=== PATIENT | male | born 1940 | race Caucasian/White ===

== ENCOUNTER → 2019-10-31 11:48 | Outpatient (CLI) | payer MEDICARE, SELFPAY | PROVIDERS: PCP Nurse Practitioner Family; Visit Provider Internal Medicine | DX: E11.9 Type 2 diabetes mellitus without complications (principal); E78.2 Mixed hyperlipidemia; I11.9 Hypertensive heart disease without heart failure; I25.10 Atherosclerotic heart disease of native coronary artery without angina pectoris; I65.23 Occlusion and stenosis of bilateral carotid arteries; N18.4 Chronic kidney disease, stage 4 (severe); R06.09 Other forms of dyspnea; R07.89 Other chest pain; R60.0 Localized edema; Z79.4 Long term (current) use of insulin | CPT/HCPCS: 93306 ==

== ENCOUNTER → 2020-10-09 12:47 | Outpatient (CLI) | payer MEDICARE, SELFPAY | PROVIDERS: PCP Nurse Practitioner Family; Visit Provider Internal Medicine | DX: R06.00 Dyspnea, unspecified (principal); R07.89 Other chest pain | CPT/HCPCS: 93225; 93226 ==

== ENCOUNTER → 2020-10-18 06:25 | Outpatient (CLI) | payer MEDICARE, SELFPAY ==
--- NOTE | 2020-10-18 06:27 | CA_ITS ---
APPROVED REPORT EXAM: Comprehensive 2D, Doppler, and color-flow Echocardiogram Professional Benefits Sales Consultant: Sona Jimenez, RCS, RVS Ht: 5 ft 4 in Wt: 183lbs BSA: 1.88 BP: 158/80 mmHg Indications: CAD-multiple stentds, MORSE, Atypical CP,DD,CP 2D Dimensions IVSd 0.95 cm LVEF (Visual) 46.00 % PWd 0.94 cm LVEF (Kauffman's) 65.10 % LVDd 4.75 cm LV Volume 95.80 mL LVDs 3.66 cm LA Volume 70.60 mL Aortic Root 3.60 cm LA Volume Index 37.60 mL/m2 (M/F) 16-34 Left Atrium 4.49 cm LVOT 2.26 cm (M/F) 1.5-2.5 M-Mode Dimensions LA Diam 4.20 cm (1.9-4.0) Ao Diam 3.72 cm (2.0-3.7) TAPSE 2.39 (<1.7) LV Diastology E Decel Time 403.00 (160-240 msec) E/A Ratio 0.64 MED E' 6.30 (< 7 cm/sec) MED A' 9.40 cm/s E'/MED E' Ratio 9.13 (>14) LAT E' 6.20 (<10 cm/sec) LAT A' 16.10 cm/s E/LAT E' Ratio 9.27 (>14) Pulm Vein s 40.00 cm/sec Pulm Vein d 27.00 cm/sec Ar-A Duration 73.00 msec Aortic Valve LVOT Max 102.00 (70-110 cm/s) LVOT VTI 24.57 cm AoV Peak James. 140.00 (50-130 cm/s) AI PHT 378.00 ms AO Peak GR. 7.90 mmHg AO Mean GR. 3.80 (<5 mmHg) AO VTI 28.95 (18-25 cm) JOHN (VTI) 3.40 (2.5-4.5 cm2) Mitral Valve MV A Velocity 90.00 (40-130 cm/s) E/A Ratio 0.64 MV Decel. Time 403.00 (160-240 ms) Pulmonary Valve PV Peak Velocity 73.00 (50-150 cm/s) Tricuspid Valve TR P. Velocity 259.00 cm/s RAP Estimate 10.00 mmHg RVSP 36.80 mmHg Left Ventricle Left atrium is mildly enlarged, left ventricle is normal size, mild concentric left ventricular hypertrophy, visually estimated ejection fraction 55% with no regional wall motion abnormality, grade 1 diastolic dysfunction seen without tissue Doppler evidence of raise left atrial pressure. Right Ventricle Right atrium and right ventricle are normal size and contractility. Aortic Valve Aortic valve is minimally thickened and calcified without aortic stenosis or aortic insufficiency. Mitral Valve Mitral valve leaflets are grossly normal, there is trace mitral regurgitation. Tricuspid Valve Tricuspid grossly normal, there is trace tricuspid regurgitation, tricuspid regurgitation jet velocity is inadequate for calculation of the right ventricular systolic pressure. Pulmonic Valve Pulmonic valve is poorly visualized. Great Vessels Aortic root is normal size. Pericardium No significant pericardial effusion noted. Conclusion 1. Mildly enlarged left atrium, normal left ventricular size, mild concentric left ventricular hypertrophy, visually estimated ejection fraction 55% with no regional wall motion abnormality, grade 1 diastolic dysfunction seen without tissue Doppler evidence of raise left atrial pressure. 2. Thickened and calcified aortic valve without aortic stenosis or aortic insufficiency. 3. Trace mitral and tricuspid regurgitation. 4. No significant pericardial effusion noted. Electronically signed by : Abiodun Maza, 10/18/2020 16:02:14
--- NOTE | 2020-10-18 06:27 | CA_ITS ---
APPROVED REPORT Exam: Pharmacologic Technologist: Dilcia Doyle, Ht: 5 ft 4 in Wt: 183 lbs BSA: 1.88 m2 HR: 69 bpm BP: 138/72 mmHg Medical History Medications: Amlodipine,,,,, Aspirin,,,,, Synthroid,,,,, Allopurinol,,,,, Atorvastatin,,,,, Lasix,,,,, INSULIN,,,,, Plavix,,,,, Acetaminophen,,,,, Meclizine,,,,, Ezetimbe,,,,, SeMaglutide,,,,, Stress Test Details Test: LEXISCAN HR Resting HR: 70 bpm Max Heart Rate (APMHR): 140.394150 bpm Max HR Achieved: 84 bpm Target HR (85% APMHR): 119.449890 bpm % of APMHR: 60.00 Recovery HR: 76 bpm BP Resting BP: 138/72 mmHg Max BP: 153/66 mmHg Recovery BP: 146.0/65.0 mmHg ECG Resting ECG: NSR, T wave abns inferiorly and laterally Medications Administered Hydralazine ( mg at ) Clinical Exercise duration: 04:01 min Highest Stage Achieved: Exercise capacity: 1.0 METs Stress ECG Conclusion Symptoms: SOA, mild malaise. No CP. Arrhythmias/Ectopy: None ST-T Changes: No significant changes. Conclusion: Unremarkable Lexiscan stress. Myoview images reported separately. Electronically signed by : Abiodun Maza, 10/18/2020 10:34:51
--- NOTE | 2020-10-18 06:27 | NM_ITS ---
APPROVED REPORT Exam: Nuclear Stress Test Indication: chest pain..fatigue Patient Location: Outpatient Stress Tech: Dilcia Doyle DC Tech:KACI Pool RT(R)(N) Ht: 5 ft 8 in Wt: 185 lbs HR: 69 bpm BP: 138/72 mmHg BSA: 1.98 m2 BMI: 28.1 History: chest pain..fatigue Procedure: Patient received a 0.4 mg of intravenous Lexiscan, resting heart rate 69 bpm, resting blood pressure 138/72 mmHg, with Lexiscan maximum heart rate achived was 79 bpm which is Less than 85 % of the maximum predicted heart rate and blood pressure was 153/66 mmHg. With Lexiscan, patient denied any complaint of chest pain. Electrocardiogram Resting electrocardiogram showed sinus rhythm nonspecific ST-T changes, with Lexiscan there is less than 1.[address] segment depression noted from the baseline EKG. The EKG portion of the Lexiscan is nondiagnostic. Cardiac Stress and Resting SPECT Images: Cardiac Stress and Resting SPECT images were obtained using technetium 99m Myoview 31.2 mCi stress and 9.89 mCi at rest. Gated SPECT for analysis of segmental wall motion and calculation of the ejection fraction also done. Prone images were also obtained. Cardiac stress and resting SPECT images show a fixed defect involving the posterior basal wall consistent with area of myocardial scarring without significant amparo-infarct ischemia, computer derived ejection fraction is 54% with moderate posterior basal wall hypokinesis. Right ventricle is normal size and contractility. Conclusion: 1. The EKG portion of the Lexiscan is nondiagnostic. 2. Scintigraphic evidence of myocardial scarring involving the posterior basal wall without significant amparo-infarct ischemia, computer derived ejection fraction is 54% with moderate posterior basal wall hypokinesis, right ventricle is normal size and contractility. 3. Abnormal Lexiscan Myoview study. Electronically signed by : Abiodun Maza, 10/18/2020 10:38:26
== END ==
PROVIDERS: PCP Nurse Practitioner Family; Visit Provider Internal Medicine
DX: E78.5 Hyperlipidemia, unspecified (principal); I11.9 Hypertensive heart disease without heart failure; I25.10 Atherosclerotic heart disease of native coronary artery without angina pectoris; I65.29 Occlusion and stenosis of unspecified carotid artery; N18.4 Chronic kidney disease, stage 4 (severe); R06.00 Dyspnea, unspecified; R07.89 Other chest pain; R60.9 Edema, unspecified
CPT/HCPCS: 78452; 93017; 93306; A9502; J2785

== ENCOUNTER 2020-10-26 08:48 | Day surgery (SDC) | payer MEDICARE, SELFPAY ==
[2020-10-26] VITALS (13 sets, daily range): BP systolic 141–184; BP diastolic 67–86; PULSE 58–72; RESP 16; TEMP 36.9; O2SAT 93–100; BMI 31.6
--- NOTE | 2020-10-26 | IR_ITS ---
APPROVED REPORT Patient Location: Outpatient PROCEDURES Left heart catheterization Left ventriculogram Selective coronary angiogram INDICATION Known multivessel coronary disease, High risk abnormal Myoview Informed consent was obtained prior to the procedure. COMPLICATIONS None Estimated Blood Loss: Less than 10 mls TECHNIQUE One percent lidocaine used to anesthetize the right anterior aspect of the wrist. The right radial artery was accessed via the Seldinger technique. A 6 Georgian sheath was placed in the right radial artery. 2.5 mg of verapamil, 800 mcg of nitroglycerin, 1mg Lidocaine and 5000 U Heparin were given through the arterial sheath. The trap catheter and a 6 Georgian JL 3 guide catheter were also used to perform left heart catheterization, left ventriculogram and selective coronary angiogram. At the end of the procedure the sheath was removed good hemostasis was achieved using Traclet band, patient was transferred to the postop holding area in stable condition. ANGIOGRAPHIC RESULTS The left main artery Normal The left anterior descending artery Has proximal 10% luminal irregularities followed by a stent which is widely patent free of in-stent restenosis with excellent proximal distal transitioning. The remaining vessel has mild atheromatous plaque. A large first diagonal artery originates within the stent and has excellent TSERING-3 flow with no evidence of obstruction The circumflex artery Is a co-dominant vessel and has a smooth ostial 20% stenosis with mild diffuse 10% stenoses. The second obtuse marginal artery has a stent in the proximal segment which is widely patent free of in-stent restenosis with excellent proximal distal transitioning The right coronary artery Is a co-dominant vessel and has mid vessel smooth 40% stenosis along a tortuous bend followed by distal eccentric 20 to 30% stenosis The HUITRON ventriculogram reveals Preserved at 55 to 60% The left ventricular end-diastolic pressure 20 mmHg IMPRESSION Widely patent coronary arteries as described above Preserved ejection fraction Mildly elevated LVEDP PLAN 1. Continue risk factor modification 2. Evaluation by nephrology for renal failure Electronically signed by : Agustin Nava, 10/26/2020 14:03:30
[2020-10-26 09:37] LABS: Chloride 105 mmol/L (98-107); Potassium 4.9 mmoL/L (3.5-5.1); Sodium 137 mmol/L (136-145)
[2020-10-26 09:40] LABS: Anion Gap 12.9 mEq/L (5-15); Blood Urea Nitrogen 51 mg/dl (9-20); Calcium 9.9 mg/dl (8.4-10.2); Carbon Dioxide 24 mmol/L (22.0-30.0); Creatinine Clearance Estimated 23 mL/min (50-200); Estimated Glomerular Filt Rate 20 ml/min (>60); GFR (African American) 24 ML/MIN (>60); Glucose 155 mg/dl (74-100)
== END 2020-10-26 15:31 | disposition home or self-care (01) ==
LOC: CATHLAB 08:51
PROVIDERS: PCP Nurse Practitioner Family; Visit Provider Internal Medicine
DX: R06.02 Shortness of breath (principal); R94.39 Abnormal result of other cardiovascular function study; I25.118 Atherosclerotic heart disease of native coronary artery with other forms of angina pectoris; E11.22 Type 2 diabetes mellitus with diabetic chronic kidney disease; I13.0 Hypertensive heart and chronic kidney disease with heart failure and stage 1 through stage 4 chronic kidney disease, or unspecified chronic kidney disease; Z95.5 Presence of coronary angioplasty implant and graft; I65.23 Occlusion and stenosis of bilateral carotid arteries; I50.9 Heart failure, unspecified; Z79.899 Other long term (current) drug therapy; Z79.4 Long term (current) use of insulin; Z88.2 Allergy status to sulfonamides; E03.9 Hypothyroidism, unspecified; N18.4 Chronic kidney disease, stage 4 (severe)
CPT/HCPCS: 80048; 93458; 99152; C1725; C1769; J1644; Q9967

== ENCOUNTER → 2022-06-19 14:29 | Outpatient (CLI) | payer MEDICARE, SELFPAY | PROVIDERS: PCP Nurse Practitioner Family; Visit Provider Nurse Practitioner | DX: I48.91 Unspecified atrial fibrillation (principal) | CPT/HCPCS: 93225 ==

== ENCOUNTER → 2022-06-30 11:42 | Outpatient (CLI) | payer MEDICARE, SELFPAY ==
--- NOTE | 2022-06-30 11:53 | NM_ITS ---
APPROVED REPORT Exam: Nuclear Stress Test Indication: short of breath..fatigue..a-fib Patient Location: Outpatient Stress Tech: Dilcia Doyle ME Tech:KACI Pool RT(R)(N) Ht: 5 ft 3 in Wt: 190 lbs HR: 61 bpm BP: 176/80 mmHg BSA: 1.89 m2 TID: 0.94 BMI: 33.6 History: short of breath..fatigue..a-fib Procedure: Patient received 0.4 mg of intravenous Lexiscan, resting heart rate 61 bpm, resting blood pressure 176/80 mmHg, with Lexiscan maximum heart rate achieved was 76 bpm which is Less than 85 % of the maximum predicted heart rate and blood pressure was 176/80 mmHg. With Lexiscan, patient denied any complaint of chest pain. The patient was unable to lay on his belly for prone images. Electrocardiogram Electrocardiogram shows sinus rhythm, with Lexiscan there is less than 1.[address] segment depression noted from the baseline EKG. The EKG portion of the Lexiscan is nondiagnostic. Cardiac Stress and Resting SPECT Images: Cardiac Stress and Resting SPECT images were obtained using technetium 99m Myoview 32.3 mCi stress and 10.37 mCi at rest. Gated SPECT analysis of segmental wall motion and calculation of the ejection fraction also done. Cardiac stress and rest SPECT may show large area of reversible ischemia involving the inferior and inferior apical wall, computer derived ejection fraction is 61% with mild inferior wall hypokinesis, right ventricle is normal size and contractility. Conclusion: 1. The EKG portion of the Lexiscan is nondiagnostic. 2. Scintigraphic evidence of large reversible ischemia involving the inferior and inferior apical wall, computer derived ejection fraction is 61% with segmental wall motion abnormality described above, right ventricle is normal size and contractility. 3. Abnormal Lexiscan Myoview study. Electronically signed by : Abiodun Maza MD 06/30/2022 16:59:31
--- NOTE | 2022-06-30 13:08 | CA_ITS ---
APPROVED REPORT EXAM: Comprehensive 2D, Doppler, and color-flow Echocardiogram Delinquent Account Clerk: Sona Jimenez, RCS, RVS Ht: 5 ft 4 in Wt: 182lbs BSA: 1.88 BP: 144/70 mmHg Indications: Afib, HTN, MR, AI, PI Echo Enhancing Agent Comments: Unable to be positioned 2D Dimensions IVSd 0.79 cm M: 0.6-1.2 LVEF (Visual) 69.00 % PWd 1.20 cm M: 0.6 - 1.2 LA Volume 56.60 mL LVDd 4.80 cm M: 4.2 - 5.9 LA Volume Index 30.11 mL/m2 (M/F) 16-34 LVDs 2.94 cm M: 2.5 - 4.0 Aortic Root 3.44 cm M: 3.1 - 3.7 Left Atrium 4.24 cm M: 3.0 - 4.0 LVOT 1.97 cm (M/F) 1.5-2.5 M-Mode Dimensions LA Diam 4.48 cm (1.9-4.0) Ao Diam 3.55 cm (2.0-3.7) EPSs 0.24 cm TAPSE 2.51 (<1.7) LV Diastology E Decel Time 303.00 (160-240 msec) E/A Ratio 0.64 MED E' 6.50 (< 7 cm/sec) MED A' 11.40 cm/s E'/MED E' Ratio 7.77 (>14) LAT E' 4.90 (<10 cm/sec) LAT A' 10.90 cm/s E/LAT E' Ratio 10.31 (>14) Aortic Valve LVOT Max 103.00 (70-110 cm/s) LVOT VTI 24.66 cm AoV Peak James. 108.00 (50-130 cm/s) AI PHT 477.00 ms AO Peak GR. 4.70 mmHg AO Mean GR. 2.30 (<5 mmHg) AO VTI 21.95 (18-25 cm) JOHN (VTI) 3.42 (2.5-4.5 cm2) Mitral Valve MV A Velocity 79.00 (40-130 cm/s) E/A Ratio 0.64 MV Decel. Time 303.00 (160-240 ms) Pulmonary Valve PV Peak Velocity 70.00 (50-150 cm/s) Tricuspid Valve TR P. Velocity 246.00 cm/s RAP Estimate 10.00 mmHg RVSP 34.20 mmHg Left Ventricle Left atrium is mildly enlarged, left ventricle is normal size mild concentric left ventricular hypertrophy estimated ejection fraction 45%, no wall motion abnormality, evidence of insufficiency Evidence of left atrial pressure. Right Ventricle Right atrium and right ventricle are normal size and contractility. Aortic Valve Aortic valve is thickened and calcified without aortic stenosis, there is mild aortic insufficiency. Mitral Valve Mitral valve is minimally thickened, there is mitral annular calcification, there is no mitral stenosis, there is mild mitral regurgitation. Tricuspid Valve Tricuspid valve is grossly normal, there is mild tricuspid regurgitation, calculated right ventricular systolic pressure 34 mmHg. Pulmonic Valve Pulmonic valve is poorly visualized. Great Vessels Aortic root normal size. Inferior vena cava is poorly visualized. Pericardium No significant pericardial effusion noted. Conclusion 1. Mildly enlarged left atrium, normal left ventricular size, estimated ejection fraction 55% with no regional wall motion abnormality. Grade 1 diastolic dysfunction seen without tissue Doppler evidence of late left atrial pressure. 2. Thickened and calcified aortic valve without aortic stenosis, there is mild aortic insufficiency. 3. Mild mitral and tricuspid regurgitation. 4. No significant pericardial effusion noted. 5. Inferior vena cava is poorly visualized. Electronically signed by : Abiodun Maza MD 07/01/2022 06:39:00
--- NOTE | 2022-06-30 13:36 | HMH.ITSHM ---
Current Home Medications as stated by this patient Erlin Carroll or front desk representative. []AMLODIPINE ALLOPURINOL ACETAMINOPHEN TAMSULOSIN TAMOXIFEN SERTRALINE SENNOSIDES SEMAGLUTIDE NITRO MEMANTINE MECLIZINE LINACLOTIDE LEVOTHYROXINE ISOSORBIDE INSULIN FUROSEMIDE EZETIMIBE BISOPROLOL ATORVASTATIN ASA APIXABAN
--- NOTE | 2022-06-30 14:03 | CA_ITS ---
APPROVED REPORT Exam: Pharmacologic Technologist: Dilcia Richard, Ht: 5 ft 4 in Wt: 182 lbs BSA: 1.88 m2 HR: 63 bpm BP: 176/80 mmHg Medical History Medications: Amlodipine,,,,, Levothyroxine,,,,, Isosorbide,,,,, Aspirin,,,,, Allopurinol,,,,, Atorvastatin,,,,, Lasix,,,,, TAMSULOSIN,,,,, Acetaminophen,,,,, BisOPROLOL,,,,, Toujeo,,,,, Meclizine,,,,, Stress Test Details Test: LEXISCAN Reason for pharmacologic stress test: physical limitation. HR Resting HR: 61 bpm Max Heart Rate (APMHR): 139.711995 bpm Max HR Achieved: 76 bpm Target HR (85% APMHR): 118.909045 bpm % of APMHR: 54.68 Recovery HR: 71 bpm BP Resting BP: 176.0/80.0 mmHg Max BP: 176.0/80.0 mmHg Recovery BP: 151.0/72.0 mmHg ECG Clinical Exercise duration: 04:01 min Highest Stage Achieved: Stress ECG Conclusion Symptom: denies Arrhythmias/Ectopy: Rare PAC/PVC ST-T Changes: <1.5mm ST changes Test Summary REST . . . . . . . Resting REST 02:16 . . 61 . 176/ 80 . . Stage 1 01:00 . . 67 . . . . Stage 2 01:00 . . 74 . 140/ 67 . . Stage 3 01:00 . . 73 . 156/ 71 . . Stage 4 01:00 . . 71 . 149/ 73 . . Stage 4 01:01 . . 71 . 149/ 73 . Stop exercise at 04:01 RECOVERY 01:00 . . 73 . . . . RECOVERY 01:32 . . 71 . 151/ 72 . . Electronically signed by : Abiodun Maza MD 06/30/2022 16:57:02
== END ==
PROVIDERS: PCP Nurse Practitioner Family; Visit Provider Nurse Practitioner
DX: I48.91 Unspecified atrial fibrillation (principal); R07.9 Chest pain, unspecified; R60.0 Localized edema
CPT/HCPCS: 78452; 93017; 93306; A9502; J2785